=== PATIENT | female | born 1965 | race African-American/Black ===

== ENCOUNTER 2021-10-22 21:28 | Emergency (ER) | payer BC ==
[~2021-10-22] VITALS: Ht 170.2 cm; Wt 74.8 kg
--- NOTE | 2021-10-22 21:45 | NUR ---
BIBS C/O "POSSIBLY HAD A SEIZURE, GOT OUT OF BED HIT FACE ON FLOOR" +LAC TO UPPER LIP. TDAP UTD. PATIENT ALERT AND ORIENTED X3. AMBULATORY WITH A CANE. IN BED 03 AWAITING MD VALIENTE. SEIZURE PRECAUTIONS IN PLACE.
--- NOTE | 2021-10-22 21:49 | NUR ---
[employer] @ BEDSIDE
--- NOTE | 2021-10-22 21:53 | NUR ---
20G IV LINE ESTABLISHED AT [facility]. BLOOD COLLECTED AND SWENT TO LAB.
[2021-10-22 21:58] LABS: BASOPHILS % (AUTO) 0.6 % (0.0-2.0); EOSINOPHILS % (AUTO) 1.6 % (0.0-6.0); HEMATOCRIT 36 % (33-45); HEMOGLOBIN 11.6 g/dL (11.5-14.8); LYMPHOCYTES # (AUTO) 1.1 K/uL (0.8-4.8); LYMPHOCYTES % (AUTO) 24.4 % (20.0-44.0); MEAN CORPUSCULAR HGB CONC 33 g/dl (31.0-36.0); MEAN CORPUSCULAR VOLUME 84 fL (82-100); MONOCYTES # (AUTO) 0.5 K/uL (0.1-1.30); MONOCYTES % (AUTO) 9.9 % (2.0-12.0); NEUTROPHILS % (AUTO) 63.5 % (43.0-81.0); PLATELET COUNT (AUTO) 239 K/uL (150-450); RED BLOOD CELL COUNT(AUTO) 4.29 MIL/uL (4.0-5.2); WHITE BLOOD COUNT (AUTO) 4.7 K/uL (4.3-11.0)
--- NOTE | 2021-10-22 22:09 | NUR ---
urine collected and sent to lab
[2021-10-22 22:12] LABS: ALANINE AMINOTRANSFERASE 20 U/L (12-78); ALBUMIN 3.9 g/dL (3.4-5.0); ALCOHOL, BLOOD < 3 mg/dL (0-0); ALKALINE PHOSPHATASE 113 U/L (46-116); ASPARTATE AMINOTRANSFERASE 12 U/L (15-37); BILIRUBIN,DIRECT 0.1 mg/dL (0.0-0.2); BILIRUBIN,TOTAL 0.2 mg/dL (0.2-1.0); CARBON DIOXIDE 27 mmol/L (21-32); CHLORIDE 99 mmol/L (98-107); CREATININE 1.1 mg/dL (0.6-1.3); GLUCOSE 137 mg/dL (74-106); POTASSIUM 3.5 mmol/L (3.5-5.1); SODIUM SERUM 136 mmol/L (136-145); TOTAL PROTEIN, SERUM 8.1 g/dL (6.4-8.2); UREA NITROGEN, BLOOD 15 mg/dL (7-18)
[2021-10-22 22:27] LABS: BILIRUBIN,URINE NEGATIVE (NEGATIVE); COLOR,URINE YELLOW (YELLOW); LEUKOCYTE ESTERASE ,URINE NEGATIVE (NEGATIVE); NITRITE, URINE NEGATIVE (NEGATIVE); PROTEIN,URINE NEGATIVE (NEGATIVE); UGLUCOSE NEGATIVE (NEGATIVE); UROBILINOGEN,URINE 0.2 EU/dL (0.2)
--- NOTE | 2021-10-22 23:11 | NUR ---
COVID SWAB COLLECTED AND SENT TO LAB
--- NOTE | 2021-10-22 23:49 | NUR ---
PT COVID+ PER LAB
--- NOTE | 2021-10-23 00:30 | NUR ---
Patient discharged to home in stable condition. Written and verbal after care instructions given. Patient verbalizes understanding of instruction. IV line removed and patient ambulatory wqith steady gait.
[2021-10-23 00:57] VITALS: BP 136/66
== END 2021-10-23 00:30 | disposition home or self-care (01) ==
LOC: ER 21:38
DX: U07.1 COVID-19 (principal); S01.511A Laceration without foreign body of lip, initial encounter; W18.39XA Other fall on same level, initial encounter; Y92.013 Bedroom of single-family (private) house as the place of occurrence of the external cause; G40.909 Epilepsy, unspecified, not intractable, without status epilepticus; Z86.73 Personal history of transient ischemic attack (TIA), and cerebral infarction without residual deficits; Z88.0 Allergy status to penicillin
CPT/HCPCS: 12011; 36415; 70450; 70486; 71045; 80048; 80076; 80307; 80320; 81003; 85025; 85730; 87426; 93005; 99285; A6403; C9803; G0480